=== PATIENT | male | born 1945 | race Caucasian/White ===

== ENCOUNTER → 2016-11-26 | Outpatient (CLI) | payer MEDICARE, OTHER | END | disposition disaster alternative care site (69) | LOC: GRAD 07:00 → GLAB 07:00 → GRAD 07:55 | DX: C18.9 Malignant neoplasm of colon, unspecified (principal); K76.0 Fatty (change of) liver, not elsewhere classified; J98.11 Atelectasis; N40.0 Benign prostatic hyperplasia without lower urinary tract symptoms; K57.30 Diverticulosis of large intestine without perforation or abscess without bleeding | CPT/HCPCS: Q9967 ==